=== PATIENT | female | born 2000 | race Caucasian/White ===

== ENCOUNTER 2020-02-24 14:05 | Emergency (ER) | payer OTHER ==
[2020-02-24 14:12] VITALS: BP 102/64
[2020-02-24 15:06] LABS: ABSOLUTE EOSINOPHILS # (AUTO) 0.1 10^3/uL (0.0-0.6); ABSOLUTE LYMPHOCYTES (AUTO) 1.3 10^3/uL (0.5-4.7); ABSOLUTE MONOCYTES (AUTO) 0.4 10^3/uL (0.1-1.4); ABSOLUTE NEUT (AUTO) 3.2 10^3/uL (1.7-8.2); BASOPHILS % (AUTO) 0.7 % (0-2); EOSINOPHILS % (AUTO) 1.5 % (0-6); HEMOGLOBIN 11.7 g/dL (12.0-15.5); LYMPHOCYTES % (AUTO) 25.9 % (13-45); MEAN CORPUSCULAR HEMOGLOBIN 28.6 pg (27.0-33.4); MEAN CORPUSCULAR HGB CONC 34.3 g/dL (32.0-36.0); MEAN CORPUSCULAR VOLUME 83 fl (80-97); MONOCYTES % (AUTO) 7.9 % (3-13); PLATELET COUNT 194 10^3/uL (150-450); RED BLOOD COUNT 4.08 10^6/uL (3.72-5.28); RED CELL DISTRIBUTION WIDTH 13.5 % (11.5-14.0); TOTAL CELLS COUNTED % (AUTO) 100 %
[2020-02-24 15:10] LABS: APPEARANCE,URINE CLOUDY; BILIRUBIN,URINE NEGATIVE (NEGATIVE); COLOR,URINE YELLOW; GLUCOSE, URINE NEGATIVE (NEGATIVE); KETONES,URINE NEGATIVE (NEGATIVE); LEUKOCYTE ESTERASE,URINE NEGATIVE (NEGATIVE); NITRITE,URINE NEGATIVE (NEGATIVE); PROTEIN,URINE 100 mg/dL (NEGATIVE); URINE SPECIFIC GRAVITY 1.019; UROBILINOGEN,URINE NEGATIVE mg/dL (<2.0)
[2020-02-24 15:31] LABS: ALBUMIN 4.7 g/dL (3.7-5.6); ALKALINE PHOSPHATASE 61 U/L (50-135); ANION GAP 10 (5-19); ASPARTATE AMINO TRANSFERASE 26 U/L (5-30); BILIRUBIN,DIRECT 0.2 mg/dL (0.0-0.4); BILIRUBIN,TOTAL 0.4 mg/dL (0.2-1.3); BLOOD UREA NITROGEN 4 mg/dL (7-20); CALCIUM 9.5 mg/dL (8.4-10.2); CARBON DIOXIDE 27 mmol/L (22-30); CHLORIDE 104 mmol/L (98-107); GLUCOSE 107 mg/dL (75-110); POTASSIUM 3.7 mmol/L (3.6-5.0); TOTAL PROTEIN 7.6 g/dL (6.3-8.2)
--- NOTE | 2020-02-24 15:56 | RADIOLOGY REPORT (SQ) ---
EXAM DESCRIPTION: U/S NON-OB PELVIS TV W/O DOP IMAGES COMPLETED DATE/TIME: 02/24/2020 3:37 pm REASON FOR STUDY: vaginal bleed times 2.5 months COMPARISON: None. TECHNIQUE: Dynamic and static grayscale images acquired of the pelvis via transvaginal approach and recorded on PACS. Additional selected color Doppler and spectral images recorded. LIMITATIONS: None. FINDINGS: UTERUS: The uterus measures 5.5 x 3.4 x 2.2 cm. The echotexture of the myometrium is homo geneous. ENDOMETRIAL STRIPE: There is a trace amount of free fluid within the endometrial canal. There is no abnormal thickening of the endometrium. CERVIX: The cervix measures 1.9 cm in length. RIGHT OVARY AND DOPPLER: The right ovary measures 3.9 x 2.6 x 2.1 cm and on Doppler there is intact c olor flow within the ovarian stroma. There is no adnexal mass. LEFT OVARY AND DOPPLER: The left ovary measures 3.2 x 2 x 2.1 cm and on Doppler there is intact color flow within the ovarian stroma. There is no adnexal mass. FREE FLUID: None noted. OTHER: No other finding. IMPRESSION: 1. Trace amount of fluid within the endometrial canal. There is no abnormal endometrial thickening. 2. Homogeneous echotexture of the myometrium. 3. Normal appearance of the ovaries. TECHNICAL DOCUMENTATION: JOB ID: [id number] 2010 [employer]- All Rights Reserved Rev-11/01 Reading location - IP/workstation name: [email or web address]
[2020-02-24] MEDS ORDERED: IBUPROFEN 600 MG TABLET PO ONE (20:37)
--- NOTE | 2020-02-24 21:17 | ER Document Report ---
ED General - General Chief Complaint: Vaginal Bleeding Stated Complaint: VAGINAL BLEEDING Time Seen by Provider: 02/24/20 14:13 Primary Care Provider: ASHLEY WOODSON MD [ACTIVE STAFF] - Follow up as needed - HPI Onset: Other - 2.5 months Onset/Duration: Gradual Associated symptoms: denies: Chest pain, Chills, Diarrhea, Hurts to breath, Nausea, Shortness of breath Exacerbated by: Denies Relieved by: Denies Notes: Patient is a 19-year-old female with a past medical history of 3 miscarriages who presents with vaginal bleeding. Patient states she has had vaginal bleeding for about 2.5 months. She had a break between February 17- and then the bleeding again occurred. She states bleeding is heavy with clots. She goes through 4-6 tampons a day. She states normally her periods are very regular. She denies any urinary symptoms. No chest pain or shortness of breath. She does have abdominal cramping which is relieved by [id number] NSAIDs. No fevers or chills. Patient does not have an FEEDER ASSOCIATE here. She states that she has moved around and has settled here but has not had a chance to see an OB. - Related Data Allergies/Adverse Reactions: No Known Allergies Allergy (Verified 02/24/20 14:16) Past Medical History - General Information source: Patient, Relative - Social History Smoking Status: Never Smoker Frequency of alcohol use: None Drug Abuse: None Family History: Reviewed & Not Pertinent Review of Systems - Review of Systems Notes: CONSTITUTIONAL: No fever, fatigue or weight loss. SKIN: No rash. HENT: No congestion, ear pain, or sore throat. EYES: No recent vision problems or eye pain. ENDOCRINE: No polyuria or polydipsia. CARDIOVASCULAR: No chest pain or edema. RESPIRATORY: No cough, shortness of breath, congestion, or wheezing. GASTROINTESTINAL: No nausea, vomiting, bloody stools or diarrhea. Positive for abdominal cramping. GENITOURINARY: No dysuria. MUSCULOSKELETAL: No joint pain or swelling. LYMPHATIC: No swollen glands. NEUROLOGIC: No seizures. No headache, focal weakness or sensory changes. HEMATOLOGIC: Positive for vaginal bleeding. PSYCHIATRIC: No depression or anxiety. Physical Exam - Vital signs Vitals: Temp Pulse Resp BP Pulse Ox 98.8 F 85 18 102/64 97 02/24/20 14:11 02/24/20 14:11 02/24/20 14:11 02/24/20 14:11 02/24/20 14:11 - Notes Notes: VITAL SIGNS: Within normal limits. GENERAL: No acute distress, non-toxic appearance. HEAD: Normal with no signs of head trauma. EYES: EOMI, conjunctiva normal, no discharge. EARS: Hearing grossly intact. NOSE: Normal. THROAT: Oropharynx is normal. NECK: Normal range of motion, no tenderness, supple, no lymphadenopathy, No adenopathy, no JVD. CHEST: Clear breath sounds bilaterally. No wheezes, rales, or rhonchi. CARDIAC: Regular rate and rhythm. S1 and S2, without murmurs, gallops, or rubs. VASCULAR: No Edema. ABDOMEN: Normal and soft with no tenderness GENITOURINARY: Normal, No tenderness LYMPATHTIC: No lymphadenopathy noted. MUSCULOSKELETAL: Good range of motion of all major joints. Extremities without clubbing, cyanosis or edema. NEUROLOGICAL: Alert and oriented x 3. No focal sensory or strength deficits. Speech normal. Follows commands appropriately. PSYCHIATRIC: Normal Affect, judgement and mood. SKIN: Normal appearance with no rashes or lesions. Course - Re-evaluation Re-evalutation: 02/24/20 23:47 Patient's hemoglobin is 11.6, slightly below normal. She is denying any symptoms of dizziness or shortness of breath. I did discuss with the on-call OB who recommended that I start her on Provera 10 mg a day for 30 days and that she follow-up with them in the office. I did discuss this with the patient and she became very tearful as she is trying to become . I discussed with her that this would help her stop the bleeding and then she can follow-up with OB for further treatment and management. Patient was in agreement. She was given strict return precautions including worsening bleeding, lightheadedness, chest pain, shortness of breath, fevers and she verbalized understanding. - Vital Signs Vital signs: Temp Pulse Resp BP Pulse Ox 98.8 F 85 18 102/64 97 02/24/20 14:11 02/24/20 14:11 02/24/20 14:11 02/24/20 14:11 02/24/20 14:11 - Laboratory Result Diagrams: 02/24/20 14:53 02/24/20 14:53 Laboratory results interpreted by me: 02/24/20 02/24/20 02/24/20 14:53 14:53 14:53 Hgb 11.7 L Hct 34.0 L BUN 4 L Creatinine 0.51 L Urine Protein 100 H Urine Blood LARGE H Discharge - Discharge Clinical Impression: Vaginal bleeding Condition: Stable Disposition: HOME, SELF-CARE Instructions: Vaginal Bleeding ([facility]) Additional Instructions: Please call to follow-up with an [facility] ASSOCIATE at the number provided. Please return to the ER for any worsening symptoms or lightheadedness, shortness of breath. Prescriptions: Medroxyprogesterone Acet [Provera 10 Mg Tablet] 10 mg PO DAILY #30 tablet Referrals: ASHLEY WOODSON MD [ACTIVE STAFF] - Follow up as needed
== END 2020-02-24 22:38 | disposition home or self-care (01) ==
LOC: ER 14:05
DX: N93.9 Abnormal uterine and vaginal bleeding, unspecified (principal); R10.9 Unspecified abdominal pain; Z87.59 Personal history of other complications of pregnancy, childbirth and the puerperium
CPT/HCPCS: 36415; 76830; 80053; 81001; 84703; 85025; 86850; 86900; 86901; 87086; 87088; 99284